=== PATIENT | male | born 1950 | race African-American/Black ===

== ENCOUNTER 2020-04-09 08:01 | Day surgery (SDC) | payer MEDICARE, OTHER ==
--- NOTE | 2020-04-03 15:16 | EKG REPORT ---
SEVERITY:- ABNORMAL ECG - SINUS RHYTHM RBBB AND LAFB : Confirmed by: Mani Posadas MD 03-Apr-2020 15:16:34
[~2020-04-09 08:01] MED LIST: LACTATED RINGERS 1000 ML IV PRN; LIDOCAINE 0.5% INJ-PF (5 MG/ML) 50 ML SDV SUBCUT PRN
[2020-04-09] MEDS ORDERED: FENTANYL CITRATE INJ/PF 100 MCG/2 ML AMPUL ONE (10:05)
[2020-04-09] MEDS ORDERED: PROPOFOL INJ 200 MG/20 ML VIAL IV ONE (10:05)
[2020-04-09] MEDS ORDERED: MIDAZOLAM 2 MG/2 ML INJ ONE (10:05)
[2020-04-09] MEDS ORDERED: KETAMINE HCL INJ 500 MG/10 ML VIAL ONE (10:05)
[2020-04-09] MEDS ORDERED: BACITRACIN ZINC OINTMENT 15 GM ONE (10:09)
[2020-04-09] MEDS ORDERED: LIDOCAINE 2% JELLY 30 ML TUBE ONE (10:09)
[2020-04-09] MEDS ORDERED: DIPHENHYDRAMINE HCL 50 MG/ML VIAL IV PRN (10:34)
[2020-04-09] MEDS ORDERED: ONDANSETRON HCL INJ/PF 4 MG/2 ML SDV IV PRN (10:34)
--- NOTE | 2020-04-09 10:41 | Discharge Summary ---
Discharge Summary (SDC) - Discharge Final Diagnosis: Bleeding internal hemorrhoids Date of Surgery: 04/09/20 Discharge Date: 04/09/20 Condition: Stable Treatment or Instructions: Discharge home. Diet as tolerated. Activity: As tolerated. Follow-up with [facility] in 3 weeks. Warm sits baths 3 times daily and after bowel movements. 5% lidocaine ointment to rectum 3 times daily. Stool softeners and fiber supplement twice daily. [id number] ibuprofen and Tylenol for pain control. Referrals: LORENZO ARRINGTON MD [Primary Care Provider] - Discharge Diet: As Tolerated Respiratory Treatments at Home: Deep Breathing/Coughing, Incentive Spirometer Discharge Activity: Balance Activity w/Rest Home Care Assistance: None Needed Report the Following to Your Physician Immediately: Shortness of Breath, Nausea, Vomiting, Increase in Pain, Fever over 101 Degrees, Unusual Bleeding, Redness
--- NOTE | 2020-04-09 10:44 | Operative Report ---
Nonrecallable Operative Report DATE OF SURGERY: 04/09/20 PREOPERATIVE DIAGNOSIS: Bleeding internal hemorrhoids POSTOPERATIVE DIAGNOSIS: Same as above OPERATION: Rubber band ligation of internal hemorrhoids x3 SURGEON: GARY MAZA ANESTHESIA: LMAC TISSUE REMOVED OR ALTERED: None COMPLICATIONS: None apparent ESTIMATED BLOOD LOSS: Minimal PROCEDURE: Procedure in detail: After informed consent was obtained, the patient was brought to the operating room and laid in the left lateral decubitus position. The [employer] retractor was inserted into the anus. Hemorrhoids were identified in the right posterior left lateral columns. The right anterior column was relatively free of hemorrhoidal tissue. Rubber bands were placed around the hemorrhoids in the right posterior position x1. In the left lateral position, the hemorrhoids were larger and required 2 separate rubber bands. After the rubber bands were placed, the procedure was concluded. All sponge, instrument, and needle counts were correct x2. Condition: Stable.
[2020-04-09 13:00] VITALS: BP 132/71
== END 2020-04-09 12:30 | disposition home or self-care (01) ==
LOC: OROUT 08:01
PROVIDERS: ATTEND Surgery
DX: K64.8 Other hemorrhoids (principal); Z79.899 Other long term (current) drug therapy; I10 Essential (primary) hypertension; Z87.891 Personal history of nicotine dependence; Z03.818 Encounter for observation for suspected exposure to other biological agents ruled out
CPT/HCPCS: 93005; 36415; 84132; 93010; 00902; 46221; U0003; J2250; J2704; C9803; 87635; 902; J3010; J3490